=== PATIENT | female | born 1960 | race Caucasian/White ===

== ENCOUNTER 2019-11-05 14:42 | Emergency (ER) | payer OTHER ==
--- NOTE | 2019-11-05 15:37 | ED Physician Documentation ---
PD HPI URI - Stated complaint Stated Complaint: SOA/FEVER/COUGH - Chief complaint Chief Complaint: Resp - History obtained from History obtained from: Patient - History of Present Illness Timing - onset: How many days ago (5) Timing duration: Days (5) Timing details: Abrupt onset, Still present Associated symptoms: Fever, Nasal congestion, Dry cough Contributing factors: Travel. No: Sick contact, Immunocompromised Similar symptoms before: Has not had sx before Recently seen: Clinic (Seen in a walk-in clinic and had a flu test that was negative but her symptoms were presumptive flu so was treated with Tamiflu, albuterol inhaler, benzonatate (Tessalon). She is still feeling generally weak tired with a lot of coughing as well as nausea and some episodes of vomiting. She has not vomited today but still was nausea. She is able to take sips of water.) Review of Systems Constitutional: reports: Fever, Chills, Myalgias, Fatigue Nose: reports: Congestion Throat: reports: Sore throat Cardiac: denies: Chest pain / pressure Respiratory: reports: Dyspnea, Cough. denies: Wheezing GI: reports: Nausea, Vomiting. denies: Diarrhea Skin: denies: Rash, Lesions PD PAST MEDICAL HISTORY - Past Medical History Cardiovascular: None Respiratory: None Neuro: None Endocrine/Autoimmune: Type 1 diabetes - Present Medications Home Medications: Ambulatory Orders Medication Instructions Recorded Confirmed Benzonatate [Tessalon Perle] 100 - 200 mg PO TID PRN #25 capsule 11/05/19 Ondansetron Odt [Zofran] 4 mg TL Q6H PRN #10 tablet 11/05/19 dexAMETHasone [Decadron] 4 mg PO DAILY #7 tablet 11/05/19 - Allergies Allergies/Adverse Reactions: Allergies Allergy/AdvReac Type Severity Reaction Status Date / Time codeine Allergy Unknown Verified 11/05/19 15:58 Penicillins Allergy Unknown Verified 11/05/19 15:57 PD ED PE NORMAL - Vitals Vital signs reviewed: Yes - General General: Alert and oriented X 3, Well developed/nourished, Other (appears tired) - HEENT HEENT: Ears normal, Moist mucous membranes, Pharynx benign - Neck Neck: Supple, no meningeal sign, No adenopathy - Cardiac Cardiac: RRR, No murmur - Respiratory Respiratory: Clear bilaterally - Abdomen Abdomen: Normal bowel sounds, Soft, Non tender - Derm Derm: Normal color, Warm and dry - Neuro Neuro: Alert and oriented X 3, No motor deficit, Normal speech Results - Vitals Vitals: Oxygen O2 Source Room air - Rads (name of study) chest xray Radiology: Prelim report reviewed (no infiltrates), See rad report PD MEDICAL DECISION MAKING - ED course Complexity details: re-evaluated patient (She drank most of a liter of fluids between the time I initially saw her and back from x-ray. She was sitting at it frequently.), considered differential (She has appearance of general illness and malaise. Her vital signs are adequate and her oxygenation is good. She is afebrile here. She says she is nauseated. She is able to take sips of water. It does sound flulike. She has not felt much improvement with the Tamiflu nor Tessalon. Some of her symptoms could be augmented as side effects of the Tamiflu so she could consider stopping that.) Departure - Departure Disposition: 01 Home, Self Care Clinical Impression: Flu-like symptoms Nausea & vomiting Qualifiers: Vomiting type: unspecified Vomiting Intractability: non-intractable Qualified Code(s): R11.2 - Nausea with vomiting, unspecified Condition: Stable Record reviewed to determine appropriate education?: Yes Instructions: ED Flu, ED Nausea Vomiting Prescriptions: Benzonatate [Tessalon Perle] 100 - 200 mg PO TID PRN #25 capsule PRN Reason: Cough dexAMETHasone [Decadron] 4 mg PO DAILY #7 tablet Ondansetron Odt [Zofran] 4 mg TL Q6H PRN #10 tablet PRN Reason: Nausea / Vomiting Comments: Some of the symptoms of aches nausea and vomiting could potentially be side effects of the Tamiflu (the most common side effects of it). Consider stopping the Tamiflu symptoms not appearing to help much anyway. Continue the albuterol inhaler 2 puffs 4 times a day. Continue benzonatate as needed for cough. We can add ondansetron for nausea. Also had Decadron steroid to decrease inflammation and this will help decrease coughing and aches. However you may notice your sugar elevate higher with it and may need to adjust your insulin. If your sugars go uncomfortably high, then just discontinue the use of this dexamethasone steroid. Discharge Date/Time: 11/05/19 16:54
[2019-11-05] MEDS ORDERED: CHERRY SYRUP 10 ML UDC PO ONE (15:52)
[2019-11-05] MEDS ORDERED: ALBUTEROL NEB 2.5 MG/3 ML INH STA (15:52)
[2019-11-05] MEDS ORDERED: DEXAMETHASONE 10 MG/ML VIAL PO STA (15:52)
[2019-11-05] MEDS ORDERED: ONDANSETRON ODT 4 MG TABLET TL STA (15:52)
[2019-11-05] MEDS ORDERED: BENZONATATE 100 MG CAPSULE PO STA (15:52)
--- NOTE | 2019-11-05 16:20 | XRAY Report ---
Reason: dyspnea/ cough Procedure Date: 11/05/2019 Accession Number: [id number] / [id number] Procedure: XR - Chest 2 View X-Ray CPT Code: 78643 Final Report FULL RESULT: EXAM: CHEST RADIOGRAPHY EXAM DATE: 11/05/2019 04:10 PM. CLINICAL HISTORY: Dyspnea/ cough. COMPARISON: None. TECHNIQUE: 2 views. FINDINGS: LUNGS: The lungs are clear. PLEURA: No significant pleural effusion. No clinically significant pneumothorax. MEDIASTINUM: The cardiomediastinal silhouette is unremarkable. BONES: No suspicious osseous lesions. IMPRESSION: No acute cardiopulmonary abnormality. RADIA
[2019-11-05 16:53] VITALS: BP 124/72
== END 2019-11-05 16:54 | disposition home or self-care (01) ==
LOC: ED 14:42
DX: R50.9 Fever, unspecified (principal); R05 Cough; R09.81 Nasal congestion; R11.2 Nausea with vomiting, unspecified; E10.9 Type 1 diabetes mellitus without complications
CPT/HCPCS: 71046; 94640; 99283; 99284; A9270; Q0162